=== PATIENT | female | born 1950 | race Caucasian/White ===

== ENCOUNTER 2018-06-26 15:06 | Inpatient (IN) | payer OTHER, BC ==
--- NOTE | 2018-06-26 15:22 | PDOC ---
Rapid Medical Evaluation Chief Complaint: Palpitations Time Seen by Provider: 06/26/18 15:20 Medical Evaluation: Allergies Allergy/AdvReac Type Severity Reaction Status Date / Time iodine Allergy Verified 02/22/14 11:37 oxycodone [Oxycodone] Allergy Verified 02/22/14 11:37 06/26/18 15:20 I have performed a brief in-person evaluation of this patient. The patient presents with a chief complaint of: rapid heart x 1 hours after going to the gym. Also reports feeling dizzy with chest discomfort Pertinent physical exam findings: appears anxious and unsteady gait heart rate tachy unlabored breathing flushed skin I have ordered the following: ekg, iv, labs The patient will proceed to the ED for further evaluation.
[2018-06-26 15:23] VITALS: BMI 26.3
[2018-06-26] MEDS ORDERED: dilTIAZem HCL 125 MG/25 ML - 25 ML VIAL ONE (15:37)
[2018-06-26 15:43] LABS: BASO % 0.8 % (0-2.0); EOS % 1.4 % (0-4.5); HEMATOCRIT 41.4 % (32.4-45.2); HEMOGLOBIN 14.4 GM/dL (10.7-15.3); LYMPH % 28.2 % (8-40); MCH 34.4 pg (25.7-33.7); MCHC 34.9 g/dl (32.0-36.0); MEAN CELL VOLUME 98.6 fl (80-96); MEAN PLT VOLUME 7.5 fl (7.5-11.1); MONO % 8.8 % (3.8-10.2); NEUT % 60.8 % (42.8-82.8); PLATELET COUNT 327 K/MM3 (134-434); RBC 4.19 M/mm3 (3.60-5.2); RDW 13.2 % (11.6-15.6); WHITE BLOOD COUNT 8.5 K/mm3 (4.0-10.0)
[2018-06-26] MEDS ORDERED: ASPIRIN 81 MG CHEWABLE TABLETS ONE (15:48)
[2018-06-26] MEDS ORDERED: ASPIRIN 81 MG CHEWABLE TABLETS PO ONE ×2 (15:48→15:49)
--- NOTE | 2018-06-26 15:49 | PDOC ---
History of Present Illness - General Chief Complaint: Palpitations Stated Complaint: PALPATIONS Time Seen by Provider: 06/26/18 15:20 - History of Present Illness Initial Comments: Minerva Cormier is a 67yo woman with a PMH of Prinzmetal's angina, HTN, HLD who presents with acute onset of palpitations starting just after 2pm today. She has no history of arrhythmia. During the episode, she states that she can feel her heart racing and has some chest pressure but denies any chest pain, shortness of breath, sweating, nausea, or vomiting. She did not a little lightheadedness right after standing from sitting, but no lightheadedness otherwise. She reports that she went to work out at the gym this morning with no difficulty and had been feeling well prior to the start of the palpitations. She denies any recent fevers/chills, cough or colds, nausea/vomiting, urinary symptoms or any other problems recently. She states that she takes amlodipine 2.5mg daily, and she took an extra dose after the start of the palpitations without any improvement. She sees Dr Molina as an outpatient. Past History - Past Medical History Allergies/Adverse Reactions: Allergies Allergy/AdvReac Type Severity Reaction Status Date / Time iodine Allergy Verified 02/22/14 11:37 oxycodone [Oxycodone] Allergy Verified 02/22/14 11:37 Home Medications: Ambulatory Orders Acetaminophen W/ Codeine #3 [Tylenol # 3 -] 1 tab PO Q6H PRN #12 tablet HTN: Yes Hypercholesterolemia: Yes - Suicide/Smoking/Psychosocial Hx Smoking History: Never smoked Have you smoked in the past 12 months: No Information on smoking cessation initiated: No Hx Alcohol Use: No Drug/Substance Use Hx: No Substance Use Type: Alcohol Review of Systems - Review of Systems Comments:: General: No fevers, no chills, no weight or appetite change, no malaise HEENT: No changes in vision, no changes in hearing, no congestion, no sore throat CV: No chest pain, no LE edema. See HPI Pulm: No SOB, no cough, no wheezing GI: No nausea or vomiting, no change in bowel habits, no melena : No frequency, no urgency, no dysuria Musc: No back pain, no joint swelling, no recent injury Skin: No rash, no lesions, no erythema Endo: No excessive thirst, no heat/cold intolerance Heme: No unusual bruising or bleeding, no swollen glands Neuro: No syncope, no numbness/tingling, no focal weakness Vasc: No claudication Psych: No recent change in mood, no SI or HI *Physical Exam - Vital Signs Last Vital Signs Temp Pulse Resp BP Pulse Ox 98 F 145 H 20 131/79 98 06/26/18 15:19 06/26/18 15:19 06/26/18 15:19 06/26/18 15:19 06/26/18 15:19 - Physical Exam Comments: General: Comfortable, no acute distress HEENT: PERRL, EOMI, MMM, voice normal, normal neck ROM, no LAD Cards: Tachycardic, irregularly irregular Pulm: Comfortable on room air, clear to auscultation bilaterally Abd: Soft, nontender, nondistended Ext: Atraumatic. No LE edema. ROM intact. Strength 5/5 and equal bilaterally Vasc: Extremities WWP. Palpable radial pulses bilaterally Skin: Normal color, no rashes or lesions Neuro: A&Ox3, CN grossly intact, normal speech, motor/sensory grossly intact and symmetric Psych: Mood appropriate to situation Moderate Sedation - Procedure Monitoring Vital Signs: Procedure Monitoring Vital Signs Temperature 98 F 06/26/18 15:19 Pulse Rate 145 H 06/26/18 15:19 Respiratory Rate 20 06/26/18 15:19 Blood Pressure 131/79 06/26/18 15:19 O2 Sat by Pulse Oximetry (%) 98 06/26/18 15:19 ED Treatment Course - LABORATORY CBC & Chemistry Diagram: 06/26/18 15:30 06/26/18 15:30 - ADDITIONAL ORDERS Additional order review: Laboratory Results 06/26/18 15:30 Sodium 142 Potassium 3.7 Chloride 108 H Carbon Dioxide 24 Anion Gap 10 BUN 20 H Creatinine 0.6 Creat Clearance w eGFR > 60 Random Glucose 113 H Calcium 9.3 Total Bilirubin 0.5 AST 17 ALT 18 Alkaline Phosphatase 88 Creatine Kinase 125 Troponin I < 0.02 Total Protein 7.4 Albumin 4.0 06/26/18 15:30 RBC 4.19 MCV 98.6 H MCHC 34.9 RDW 13.2 MPV 7.5 Neutrophils % 60.8 D Lymphocytes % 28.2 D Monocytes % 8.8 Eosinophils % 1.4 D Basophils % 0.8 - RADIOLOGY Radiology Studies Ordered: Category Date Time Status CHEST PA & LAT [RAD] Stat Radiology 06/26/18 15:48 Ordered CHEST X-RAY PORTABLE* [RAD] Stat Radiology 06/26/18 15:47 Completed - Medications Given in the ED: ED Medications Discontinued Medications Generic Name Dose Route Start Last Admin Trade Name Freq PRN Reason Stop Dose Admin Aspirin 162 mg 06/26/18 15:48 06/26/18 17:42 Asa - PO 06/26/18 15:49 Not Given ONCE ONE Aspirin 324 mg 06/26/18 15:49 06/26/18 15:50 Asa - PO 06/26/18 15:50 324 mg ONCE ONE Administration Diltiazem HCl 30 mg 06/26/18 16:12 06/26/18 17:41 Cardizem - PO 06/26/18 16:13 30 mg ONCE ONE Administration Medical Decision Making - Medical Decision Making 06/26/18 16:34 Minerva Cormier is a 67yo woman with a PMH of Prinzmetal's angina, HTN, HLD who presents with acute onset of palpitations starting just after 2pm today with some chest pressure but no chest pain, SOB, lightheadedness. - In a-fib w/ RVR with HR to 170's on arrival to the ED. No history of arrhythmia - Otherwise benign physical exam. No AMS. Normotensive - 10mg diltiazem IV given. Repeat EKG with NSR, HR 95. - CBC, CMP, mag, phos, coags, trop, CXR pending - Will need admission for cardiology workup 06/26/18 16:49 - Labs completed, unremarkable - Page to Dr Arredondo for admission - Call placed to Dr Molina for cardiology consult 06/26/18 17:56 - Second calls placed to Dr Arredondo and Dr Molina. - Spoke to Dr Glover (covering for Dr Molina). Recommending telemetry , lovenox 1mg/kg BID, diltiazem 30mg Q6hr 06/26/18 18:12 - Spoke with Dr Arredondo, will admit to telemetry. Seen and discussed with Dr Fernandez. Nancy Al PGY1 *DC/Admit/Observation/Transfer Diagnosis at time of Disposition: Atrial fibrillation with rapid ventricular response - Discharge Dispostion Decision to Admit order: Yes Decision to Admit order Date/Time: Decision to Admit Order Category Date Time Status Decision to Admit to Hospital Routine Admission 06/26/18 16:59 Active - Referrals - Patient Instructions - Post Discharge Activity
--- NOTE | 2018-06-26 16:08 | PDOC ---
Attending Attestation - Resident Resident Name: Nancy Al - ED Attending Attestation I have performed the following: I have examined & evaluated the patient, The case was reviewed & discussed with the resident, I agree w/resident's findings & plan - HPI HPI: 06/26/18 16:02 67-year-old female with history of Prinzmetal's angina p/w new onset heart palpitations that began abruptly about 1h ago. associated with chest pressure but no light headedness/syncope. no h/o arrhythmia, had reportedly normal stress test about 1.5 years ago and tolerates gym exercises at least 2x/wk, including this morning. no infectious/dehydration complaints, no stimulants/decongestants, no extra caffeine, no recent travel other than [place] for the weekend. - Physicial Exam PE: 06/26/18 16:07 Blood pressure 139/80, heart rate 170 at triage, O2 sat within normal limits Well-appearing seated in stretcher speaking full sentences Heart is irregular tachycardia, lungs are clear No edema or calf tenderness - Critical Care Time Total Critical Care Time: 70 Critical Care Statement: The care of this patient involved high complexity decision making to prevent further life threatening deterioration of the patient 's condition and/or to evaluate & treat vital organ system(s) failure or risk of failure. - Medical Decision Making 06/26/18 16:07 67-year-old female with history of Prinzmetal's angina and normal stress test in the past presents with new onset atrial fibrillation with rapid ventricular response. Seen immediately upon arrival and placed on monitor No acute respiratory distress, no acute ischemic changes on EKG Given diltiazem 10 mg IV with improved heart rate to the 90s, repeat EKG is SINUS rhythm at 95. Trend troponins given symptomatic chest pain during tachycardia, admit for telemetry. Heart Score/ECG Review #1 ECG reviewed & interpreted by me at: 15:13 06/26/18 16:36 afib with rvr at 154, ST depression v4-v6 likely demand related, qtc 470 #2 ECG reviewed & interpreted by me at: 16:19 General ECG Interpretation: Sinus Rhythm, Normal Rate (95), Normal Intervals ( qtc 444), No acute ischemic changes
[2018-06-26] MEDS ORDERED: dilTIAZem HCL 30 MG TABLET (FP) PO ONE (16:12)
[2018-06-26 16:37] LABS: ALK PHOS 88 U/L (45-117); ANION GAP 10 MMOL/L (8-16); BILIRUBIN,TOTAL 0.5 mg/dL (0.2-1); BLOOD UREA NITROGEN 20 mg/dL (7-18); CALCIUM 9.3 mg/dL (8.5-10.1); CHLORIDE 108 mmol/L (98-107); CO2 24 mmol/L (21-32); CREATININE 0.6 mg/dL (0.55-1.3); GLUCOSE,RANDOM 113 mg/dL (74-106); POTASSIUM 3.7 mmol/L (3.5-5.1); SGOT/AST 17 U/L (15-37); SGPT/ALT 18 U/L (13-61); SODIUM 142 mmol/L (136-145); TOT PROT 7.4 g/dl (6.4-8.2)
--- NOTE | 2018-06-26 17:28 | EKG ---
Test Reason : Blood Pressure : / mmHG Vent. Rate : 154 BPM Atrial Rate : 312 BPM P-R Int : 000 ms QRS Dur : 092 ms QT Int : 294 ms P-R-T Axes : 000 040 -21 degrees QTc Int : 470 ms ATRIAL FIBRILLATION WITH RAPID VENTRICULAR RESPONSE INCOMPLETE RIGHT BUNDLE BRANCH BLOCK ABNORMAL ECG WHEN COMPARED WITH ECG OF 28-AUG-2005 08:26, ATRIAL FIBRILLATION HAS REPLACED SINUS RHYTHM VENT. RATE HAS INCREASED BY 82 BPM Confirmed by NEETU HUNTER, MISTY ([id number]) on 06/26/2018 5:28:25 PM Referred By: Confirmed By:MISTY DE ANDA MD
[2018-06-26] MEDS ORDERED: dilTIAZem HCL 30 MG TABLET (FP) ONE (17:35)
[2018-06-26] MEDS: dilTIAZem HCL 30 MG TABLET (FP) PO SCH ×2 (17:41→23:41)
[2018-06-26] MEDS ORDERED: ENOXAPARIN NA (PORCINE) 40 MG/0.4 ML DISP.SYRIN SQ SCH (22:00)
[2018-06-26 23:14] LABS: INR 1.03 (0.83-1.09); PROTHROMBIN TIME (PATIENT) 12.1 SEC (9.7-13.0)
[2018-06-26 23:16] LABS: ACTIVATED PTT 30.2 SECONDS (25.2-36.5)
[2018-06-27] MEDS: dilTIAZem HCL 30 MG TABLET (FP) PO SCH (05:57)
[2018-06-27] MEDS ORDERED: ACETAMINOPHEN 325 MG TABLET (FP) PO ONE (06:00)
[2018-06-27 06:39] LABS: BASO % 0.7 % (0-2.0); EOS % 4.4 % (0-4.5); HEMATOCRIT 34.8 % (32.4-45.2); HEMOGLOBIN 12.2 GM/dL (10.7-15.3); MCH 34.3 pg (25.7-33.7); MEAN CELL VOLUME 98.1 fl (80-96); MEAN PLT VOLUME 7.5 fl (7.5-11.1); MONO % 11.2 % (3.8-10.2); NEUT % 45.7 % (42.8-82.8); PLATELET COUNT 222 K/MM3 (134-434); RBC 3.55 M/mm3 (3.60-5.2); RDW 13.3 % (11.6-15.6); WHITE BLOOD COUNT 3.6 K/mm3 (4.0-10.0)
[2018-06-27 07:32] LABS: ALBUMIN 3.3 g/dl (3.4-5.0); ALK PHOS 62 U/L (45-117); ANION GAP 8 MMOL/L (8-16); BILIRUBIN,TOTAL 0.3 mg/dL (0.2-1); BLOOD UREA NITROGEN 13 mg/dL (7-18); CALCIUM 8.4 mg/dL (8.5-10.1); CHLORIDE 108 mmol/L (98-107); CO2 26 mmol/L (21-32); CREATININE 0.5 mg/dL (0.55-1.3); GLUCOSE,RANDOM 87 mg/dL (74-106); POTASSIUM 3.7 mmol/L (3.5-5.1); SGOT/AST 14 U/L (15-37); SGPT/ALT 15 U/L (13-61); SODIUM 142 mmol/L (136-145); TOT PROT 6.1 g/dl (6.4-8.2)
--- NOTE | 2018-06-27 09:22 | CON.CARD ---
Consult Consult Specialty:: Cardiology Referred by:: Dr. Arredondo Reason for Consultation:: FADY - History of Present Illness Chief Complaint: Palpitations History of Present Illness: 67F HTN, Prinzmetal's angina, s/p Bariatric Surgery admitted with episode sudden onset palpitations associated with chest tightness. In ER, converted to NSR after dose of Diltiazem. Denies previous palpitations. Denies exertional CP or SOB. No syncope. No recent travel No recent illness/dehydration Denies excessive caffeine intake No suppliments - History Source History Provided By: Patient - Past Medical History Cardio/Vascular: Yes: HTN, Other (Prinzmetal's angina) Hepatobiliary: No: Cirrhosis, Cholelithiasis, Cholecystitis, Choledocholithiasis , Hepatitis A, Hepatitis B, Hepatitis C, Other Renal/: No: Renal Failure, Renal Inusuff, BPH, Cancer, Hematuria, Hemodialysis , Neurogenic Bladder, Renal Calculi, UTI, Other Heme/Onc: No: Anemia, B12 Deficiency, Bleeding Disorder, Cancer, Current Chemotherapy, Current Radiation Therapy, Hemochromatosis, Hypercoaguable State, Myeloproliferative Synd, Sickle Cell Disease, Sickle Cell Trait, Thrombocytopenia, Other Infectious Disease: No: AIDS, C-Diff, Herpes Zoster, HIV, MRSA, STD's, Tuberculosis, VREF, Other Psych: No: Addictions, Anxiety, Bipolar, Depression, Panic, Psychosis, Schizophrenia, Other Musculoskeletal: No: Bursitis, Chronic low back pain, Hemiparesis, Hemiplegia, Osteoarthritis, Paraplegia, Other Rheumatology: No: Fibromyalgia, Gout, Lupus, Rheumatoid Arthritis, Sarcoidosis, Vasculitis, Other ENT: No: Allergic Rhinitis, Sinusitis, Other Endocrine: No: [place]'s Disease, [place]'s Disease, Diabetes Insipidus, Diabetes Mellitus, Hyperparathyroidism, Hyperthyroidism, Hypothyroidism, Osteopenia, SIADH, Other Dermatology: No: Basal Cell, Cellulitis, Eczema, Melanoma, Psoriasis, Squamous Cell, Other - Past Surgical History Past Surgical History: No: None, AAA Repair, AICD, Amputation, Appendectomy, Arthrosocopy, AV Fistula/Graft, Bariatric Surgery, Breast Biopsy, Bypass, CABG, Carotid Endarterectomy, Cataract Removal, Cholecystectomy, Colectomy, Colonoscopy, Colostomy, Craniotomy, , Cystectomy, Hernia Repair, Hysterectomy, Ileal Conduit, Ileosotomy, Joint Replacement, Kidney Transplant, Laminectomy, Liver Transplant, Mastectomy, Nephrectomy, Oopherectomy, Orchiectomy, Permanent Pacemaker, Prostatectomy, Splenectomy, Stent, Thoracotomy , TURP, Tonsillectomy, Tubal Ligation, Upper Endoscopy, Valve Replacement, Vasectomy, Vein Stripping/Ligation - Alcohol/Substance Use Hx Alcohol Use: No - Smoking History Smoking history: Never smoked Have you smoked in the past 12 months: No - Social History Usual Living Arrangement: Alone History of Recent Travel: No Home Medications - Allergies Allergies/Adverse Reactions: Allergies Allergy/AdvReac Type Severity Reaction Status Date / Time iodine Allergy Verified 02/22/14 11:37 oxycodone [Oxycodone] Allergy Verified 02/22/14 11:37 - Home Medications Home Medications: Ambulatory Orders Acetaminophen W/ Codeine #3 [Tylenol # 3 -] 1 tab PO Q6H PRN #12 tablet Family Disease History - Family Disease History Family History: Unremarkable (not pertinent to this presentation) Review of Systems Findings/Remarks: see HPI - Review of Systems Constitutional: reports: No Symptoms Eyes: reports: No Symptoms HENT: reports: No Symptoms Neck: reports: No Symptoms Cardiovascular: reports: Chest Pain, Palpitations Respiratory: denies: No Symptoms, Cough, Exercise Intolerance, Hemoptysis, Orthopnea, PND, Snoring, SOB, SOB on Exertion, Wheezing, Other Gastrointestinal: denies: No Symptoms, Abdominal Pain, Bloating, Constipation, Diarrhea, Dysphagia, Indigestion, Melena, Nausea, Rectal Bleeding, Vomiting, Vomiting Blood, Other Genitourinary: denies: No Symptoms, Burning, Discharge, Dysuria, Flank Pain, Frequency, Hematuria, Incontinence, Lesions, Menses, Pain, Testicular Mass, Testicular Pain, Testicular Swelling, Urgency, Vaginal Bleeding, Other Breasts: denies: No Symptoms Reported, See HPI, Breast Implants, Discharge from Nipple, Lumps, Pain, Skin Changes, Other Musculoskeletal: denies: No Symptoms, Back Pain, Crepitus, Decreased ROM, Extremity Pain, Joint Pain, Joint Swelling, Muscle Pain, Muscle Cramps, Muscle Weakness, Other Integumentary: denies: No Symptoms, Blister, Bruising, Change in Color, Eczema, Erythema, Incision, Lesions, Lump, Pallor, Pruritis, Rash, Wound, Other Neurological: denies: No Symptoms, Change in LOC, Change in Speech, Confusion, Dizziness, Headache, Incoordination, Numbness, Parasthesia, Pre-Existing Deficit , Seizure, Syncope, Tremors, Unsteady Gait, Weakness, Other Endocrine: denies: No Symptoms, Excessive Sweating, Flushing, Increased Hunger, Increased Thirst, Intolerance to Cold, Intolerance to Heat, Unexplained Weight Gain, Unexplained Weight Loss, Other Hematology/Lymphatic: denies: No Symptoms, Easily Bruised, Excessive Bleeding, Swollen Glands, Other Psychiatric: denies: No Symptoms, Altered Sleep Pattern, Anxiety, Depression, Hallucinations, Panic, Paranoia, Suicidal, Other - Risk Factors Known Risk Factors: Yes: Hypertension Vital Signs: Vital Signs Temperature 97.9 F 06/27/18 05:49 Pulse Rate 74 06/27/18 05:49 Respiratory Rate 20 06/27/18 05:49 Blood Pressure 128/79 06/27/18 05:49 O2 Sat by Pulse Oximetry (%) 100 06/26/18 21:00 Constitutional: Yes: No Distress, Calm Eyes: Yes: Conjunctiva Clear, EOM Intact HENT: Yes: Atraumatic, Normocephalic Neck: Yes: Supple, Trachea Midline Respiratory: Yes: CTA Bilaterally Gastrointestinal: Yes: Soft Cardiovascular: Yes: Regular Rate and Rhythm JVD: No Carotid Bruit: No PMI: Non-Displaced Heart Sounds: Yes: S1, S2 (RRR, no M/R/G) Musculoskeletal: Yes: WNL Extremities: Yes: WNL Edema: No Peripheral Pulses WNL: Yes Neurological: Yes: Alert, Oriented ...Motor Strength: WNL - Other Data Labs, Other Data: CBC, BMP 06/27/18 05:30 06/27/18 05:30 INR, PTT INR 1.03 (0.83-1.09) 06/26/18 17:08 Troponin, BNP 06/26/18 06/26/18 06/27/18 15:30 23:45 05:30 Troponin I < 0.02 0.03 0.02 Troponin, BNP 06/26/18 06/26/18 06/27/18 15:30 23:45 05:30 Troponin I < 0.02 0.03 0.02 Echo: Pending Ejection Fraction %: LVEF > or = 40 % Imaging - Results Chest X-ray: Image Reviewed EKG: Image Reviewed (AF 154 bpm, incomplete RBBB. NSST changes. 12 lead: NSR 95bpm, possible LAE) Problem List - Problems (1) Atrial fibrillation with rapid ventricular response Code(s): I48.91 - UNSPECIFIED ATRIAL FIBRILLATION (2) Hypertensive heart disease Code(s): I11.9 - HYPERTENSIVE HEART DISEASE WITHOUT HEART FAILURE Qualifiers: Heart failure presence: without heart failure Qualified Code(s): I11.9 - Hypertensive heart disease without heart failure (3) Prinzmetal variant angina Code(s): I20.1 - ANGINA PECTORIS WITH DOCUMENTED SPASM (4) Abnormal ECG Code(s): R94.31 - ABNORMAL ELECTROCARDIOGRAM [ECG] [EKG] Assessment/Plan IMP: New onset AF w/ RVR---> NSR with CHA2DS VASc score = 3 Hypertension, hypertensive heart disease Left atrial enlargement REC: 1. Tele 2. Echo 3. Nuclear stress to r/o obstructive CAD 4. D/C Lovenox and switch to Eliquis and extended release Cardizem CD 5. Thyroid studies WNL If remains in NSR/ rate controlled and stress WNL, OK to d/c home later today with close outpatient f/u.
[2018-06-27] MEDS ORDERED: ENOXAPARIN NA (PORCINE) 80 MG/0.8 ML DISP.SYRIN SQ SCH (10:00)
[2018-06-27] MEDS ORDERED: ASPIRIN COATED 81 MG TABLET.EC PO SCH (10:00)
[2018-06-27] MEDS ORDERED: APIXABAN 5 MG TABLET PO SCH (10:00)
--- NOTE | 2018-06-27 14:08 | ECHO ---
Name: RACCA, HOPE Exam:Adult Echocardiogram Study Date: 06/27/2018 09:41 AM Age: 67 yrs Reason For Study: A-Fib Height: 66 in Weight: 163 lb BSA: 1.8 m2 MMode/2D Measurements & Calculations Ao root diam: 2.6 cm LVOT diam: 2.0 cm LA dimension: 4.1 cm TAPSE: 3.0 cm RV S Andrei: 18.0 cm/sec Doppler Measurements & Calculations MV E max andrei: 83.4 cm/sec Ao V2 max: 185.8 cm/sec MV A max andrei: 96.0 cm/sec Ao max P.8 mmHg MV E/A: 0.87 TR max andrei: 230.9 cm/sec Med Peak E' Andrei: 7.8 cm/sec TR max P.4 mmHg Med E/e': 10.6 Lat Peak E' Andrei: 9.2 cm/sec Lat E/e': 9.0 Procedure A complete two-dimensional transthoracic echocardiogram was performed (2D, M-mode, Doppler and color flow Doppler). Left Ventricle The left ventricular size, thickness and function are normal. Ejection Fraction = 65%. The transmitra l spectral Doppler flow pattern is suggestive of impaired LV relaxation. The left ventricular wall td on is normal. Right Ventricle The right ventricle is normal in size and function. Atria The left atrium is borderline dilated. Right atrial size is normal. Mitral Valve There is mild mitral valve thickening. There is trace mitral regurgitation. Tricuspid Valve The tricuspid valve is normal. There is trace tricuspid regurgitation. Aortic Valve The aortic valve is normal in structure and function. Pulmonic Valve The pulmonic valve leaflets are thin and pliable; valve motion is normal. Trace pulmonic valvular regurgitation. Great Vessels The aortic root is normal size. Pericardium/Pleura There is no pericardial effusion. There is no pleural effusion. Interpretation Summary The left ventricular size, thickness and function are normal Ejection Fraction = 65%. The right ventricle is normal in size and function. The left atrium is borderline dilated. There is mild mitral valve thickening. There is trace mitral regurgitation. There is trace tricuspid regurgitation. Trace pulmonic valvular regurgitation. MD Yves Barajas 06/27/2018 02:07 PM
--- NOTE | 2018-06-27 15:07 | EKG ---
Test Reason : Blood Pressure : / mmHG Vent. Rate : 095 BPM Atrial Rate : 095 BPM P-R Int : 168 ms QRS Dur : 094 ms QT Int : 354 ms P-R-T Axes : 048 017 018 degrees QTc Int : 444 ms NORMAL SINUS RHYTHM POSSIBLE LEFT ATRIAL ENLARGEMENT BORDERLINE ECG Confirmed by Yves Barajas MD ([id number]) on 06/27/2018 3:07:10 PM Referred By: Confirmed By:Yves Barajas MD
--- NOTE | 2018-06-27 16:26 | HP ---
Admitting History and Physical - Past Medical History Cardiovascular: Yes: HTN, Other (Prinzmetal's angina) Hepatobiliary: No: Cirrhosis, Cholelithiasis, Cholecystitis, Choledocholithiasis , Hepatitis A, Hepatitis B, Hepatitis C, Other Renal/: No: Renal Failure, Renal Inusuff, BPH, Cancer, Hematuria, Hemodialysis , Neurogenic Bladder, Renal Calculi, UTI, Other Heme/Onc: No: Anemia, B12 Deficiency, Bleeding Disorder, Cancer, Current Chemotherapy, Current Radiation Therapy, Hemochromatosis, Hypercoaguable State, Myeloproliferative Synd, Sickle Cell Disease, Sickle Cell Trait, Thrombocytopenia, Other Infectious Disease: No: AIDS, C-Diff, Herpes Zoster, HIV, MRSA, STD's, Tuberculosis, VREF, Other Psych: No: Addictions, Anxiety, Bipolar, Depression, Panic, Psychosis, Schizophrenia, Other Musculoskeletal: No: Bursitis, Chronic low back pain, Hemiparesis, Hemiplegia, Osteoarthritis, Paraplegia, Other Rheumatology: No: Fibromyalgia, Gout, Lupus, Rheumatoid Arthritis, Sarcoidosis, Vasculitis, Other ENT: No: Allergic Rhinitis, Sinusitis, Other Endocrine: No: [place]'s Disease, [place]'s Disease, Diabetes Insipidus, Diabetes Mellitus, Hyperparathyroidism, Hyperthyroidism, Hypothyroidism, Osteopenia, SIADH, Other Dermatology: No: Basal Cell, Cellulitis, Eczema, Melanoma, Psoriasis, Squamous Cell, Other - Past Surgical History Past Surgical History: No: None, AAA Repair, AICD, Amputation, Appendectomy, Arthrosocopy, AV Fistula/Graft, Bariatric Surgery, Breast Biopsy, Bypass, CABG, Carotid Endarterectomy, Cataract Removal, Cholecystectomy, Colectomy, Colonoscopy, Colostomy, Craniotomy, , Cystectomy, Hernia Repair, Hysterectomy, Ileal Conduit, Ileosotomy, Joint Replacement, Kidney Transplant, Laminectomy, Liver Transplant, Mastectomy, Nephrectomy, Oopherectomy, Orchiectomy, Permanent Pacemaker, Prostatectomy, Splenectomy, Stent, Thoracotomy , TURP, Tonsillectomy, Tubal Ligation, Upper Endoscopy, Valve Replacement, Vasectomy, Vein Stripping/Ligation - Smoking History Smoking history: Never smoked Have you smoked in the past 12 months: No - Alcohol/Substance Use Hx Alcohol Use: No - Social History History of Recent Travel: No Home Medications - Allergies Allergies/Adverse Reactions: Allergies Allergy/AdvReac Type Severity Reaction Status Date / Time iodine Allergy Verified 02/22/14 11:37 oxycodone [Oxycodone] Allergy Verified 02/22/14 11:37 - Home Medications Home Medications: Ambulatory Orders Acetaminophen W/ Codeine #3 [Tylenol # 3 -] 1 tab PO Q6H PRN #12 tablet Amlodipine Besylate [Norvasc -] 2.5 mg PO DAILY 06/27/18 Omeprazole 40 mg PO DAILY 06/27/18 Sertraline HCl 50 mg PO BID 06/27/18 Physical Examination Vital Signs: Vital Signs Temperature 97.9 F 06/27/18 05:49 Pulse Rate 74 06/27/18 05:49 Respiratory Rate 16 06/27/18 09:00 Blood Pressure 128/79 06/27/18 05:49 O2 Sat by Pulse Oximetry (%) 100 06/27/18 09:00 Labs: CBC, BMP 06/27/18 05:30 06/27/18 05:30
[2018-06-27 19:42] VITALS: BP 154/92; PULSE 82; TEMP 98
== END 2018-06-27 17:32 | disposition home or self-care (01) | DRG 309 ==
LOC: JER 15:06 → SUPCPDRO 15:06 → JERBED 16:59 → J4W 20:46
PROVIDERS: ADMIT Internal Medicine; ATTEND Internal Medicine
DX: I48.91 Unspecified atrial fibrillation (principal); I20.0 Unstable angina; I11.9 Hypertensive heart disease without heart failure; E78.5 Hyperlipidemia, unspecified
CPT/HCPCS: 36415; 71045-TC-FY; 78452-TC; 80053; 82550; 83735; 84443; 84484; 85025; 85610; 85730; 93005; 93010; 93017; 93306-TC; 99285-25; A9502

== ENCOUNTER 2019-06-26 08:06 | Day surgery (SDC) | payer OTHER, BC ==
[2019-06-18 17:02] VITALS: BMI 28.3
--- NOTE | 2019-06-26 08:04 | HP ---
Satellite [facility] - Chief Complaint Chief Complaint: right knee pain - Past Medical History Allergies/Adverse Reactions: Allergies Allergy/AdvReac Type Severity Reaction Status Date / Time oxycodone [Oxycodone] Allergy Intermediate Vomiting Verified 06/18/19 16:44 iodine Allergy Mild ACNE Verified 06/18/19 16:44 Cardiovascular: Yes: HTN, Hyperlipdemia, Other (Prinzmetal's angina) - Current Medications Current Medications: Home Medications Medication Instructions Recorded Apixaban [Eliquis -] 5 mg PO BID #60 tablet 06/27/18 Omeprazole 40 mg PO DAILY 06/27/18 Sertraline HCl 100 mg PO BID 06/27/18 Amlodipine Besylate 5 mg PO DAILY 06/18/19 Calcium Carbonate [Calcium] 500 mg PO DAILY 06/18/19 Metoprolol Tartrate 25 mg PO DAILY 06/18/19 Multivitamin [Multiple Vitamins] 2 each PO DAILY 06/18/19 Satellite Physical Exam - Physical Examination General Appearance: Well Nourished, Well Developed, Alert & Oriented x3 ENT: Clear Lung: Normal air movement Extremities: Other (right knee- + swelling, + ttp, decr rom, nvi, xrays show grade 4 tricompartmental djd) Neurological: Intact, Alert, Oriented Satellite Impression/Plan - Impression/Plan Impression: right knee djd Operative Procedure: right flynn tkr Date to be Performed: 06/26/19
[2019-06-26] MEDS ORDERED: CEFAZOLIN 2 GM in DEXTROSE 5%-WATER - 50 ML IVPB ONE ×2 (08:24→08:52)
[2019-06-26] MEDS ORDERED: TRANEXAMIC ACID 1000 MG/10 ML VIAL IVPUSH ONE ×2 (08:24)
[2019-06-26] MEDS ORDERED: CELECOXIB 200 MG CAPSULE PO ONE ×2 (08:24)
[2019-06-26] MEDS ORDERED: CELECOXIB 200 MG CAPSULE ONE (08:27)
[2019-06-26 09:19] VITALS: BP 129/87; PULSE 140; TEMP 98.2
--- NOTE | 2019-06-26 10:57 | EKG ---
Test Reason : Blood Pressure : / mmHG Vent. Rate : 137 BPM Atrial Rate : 137 BPM P-R Int : 104 ms QRS Dur : 086 ms QT Int : 370 ms P-R-T Axes : 000 029 056 degrees QTc Int : 558 ms POOR DATA QUALITY, INTERPRETATION MAY BE ADVERSELY AFFECTED SINUS TACHYCARDIA WITH SHORT FL INFERIOR INFARCT , POSSIBLY ACUTE T WAVE ABNORMALITY, CONSIDER ANTERIOR ISCHEMIA ACUTE VT / STEMI ABNORMAL ECG WHEN COMPARED WITH ECG OF 26-JUN-2018 16:19, ST ELEVATION NOW PRESENT IN INFERIOR LEADS Confirmed by Yves Barajas MD ([id number]) on 06/26/2019 10:56:46 AM Referred By: Joselo Aguero Confirmed By:Yves Barajas MD
--- NOTE | 2019-06-26 16:57 | CONS ---
ORTHOPAEDIC CONSULTATION [facility] DATE OF CONSULTATION: 06/26/2019 HISTORY: Patient is a 68-year-old insulin-dependent diabetic status post a fall yesterday. Negative LOC. Complaining of significant pain in the right arm. Patient is status post right shoulder hemiarthroplasty over 12 years ago. She is complaining of significant amount of pain in the right arm. PHYSICAL EXAMINATION: She is in a posterior splint. She has good range of motion of her wrist and fingers and intact ulnar, medial, radial sensation. Adequate motion of her right shoulder with a well-healed anterior shoulder incision from her hemiarthroplasty. DIAGNOSTIC DATA: X-rays of her right humerus show that she has an oblique distal humeral shaft fracture below the right cemented hemiarthroplasty. IMPRESSION: Right distal humerus oblique displaced fracture below a right shoulder hemiarthroplasty that is cemented. PLAN: Risks, benefits, alternatives were discussed with patient and with son in great detail. Family is leaning towards having operative intervention even though I went through all the risks, benefits, and alternatives. Patient realizes there is an extra risk due to her age and her diabetes. In addition, with this fracture being below a hemiarthroplasty, it leads to a whole host of difficulties use cables and specialized plates in order to gain fixation. Also patient and family realize that the radial nerve wraps around the humerus above this fracture would need to be retracted in order to perform this procedure. Patient may end up with a wrist drop at the end of the operation. I went through all this. The patient and family will discuss it. Patient is on Xarelto and at this time will need to come off the Xarelto in order to have the procedure. We have stopped Xarelto. Patient will, again, discuss it with the family and let me know tomorrow definitively one way or the other. ARIANNA JOHANSEN M.D. [id number]
== END 2019-06-26 10:45 | disposition short-term general hospital (02) ==
LOC: FM/S 08:06 → FASUSAT 08:06 → UNDOADMIN 08:06 → EDSTATUS 09:00 → FASUSAT 10:45
PROVIDERS: ATTEND Orthopaedic Surgery
PROC: 0SRC06Z Replacement of Right Knee Joint with Oxidized Zirconium on Polyethylene Synthetic Substitute, Open Approach (ICD-10-PCS; principal; 2019-06-26)
DX: Z53.09 Procedure and treatment not carried out because of other contraindication (principal); M17.11 Unilateral primary osteoarthritis, right knee
CPT/HCPCS: 93005

== ENCOUNTER 2019-06-26 10:07 | Emergency (ER) | payer OTHER, BC ==
[2019-06-26 10:16] VITALS: TEMP 98.5; BMI 28.8
--- NOTE | 2019-06-26 10:39 | PDOC ---
History of Present Illness - General Chief Complaint: Irregular Heart Beat Stated Complaint: FAST IRREGULAR HEART BEAT Time Seen by Provider: 06/26/19 10:15 - History of Present Illness Initial Comments: Minerva Cormier is a 68yo woman with a PMH Prinzmetal's angina, HTN, HLD, a-fib (on Eliquis) who presents with a-flutter noted while she was in preop for a schedule knee replacement surgery today. She states that she felt a fluttering sensation yesterday and this morning, similar to whien her a-fib was diagnosed last year, but has not had any other symptoms. She denies any chest pain, difficulty breathing, or lightheadedness. She states that she stopped taking her Eliquis on Tuesday due to her scheduled surgery, but she has been taking her other medications as directed. Past History - Past Medical History Allergies/Adverse Reactions: Allergies Allergy/AdvReac Type Severity Reaction Status Date / Time oxycodone [Oxycodone] Allergy Intermediate Vomiting Verified 06/26/19 10:12 iodine Allergy Mild ACNE Verified 06/26/19 10:12 Home Medications: Ambulatory Orders Apixaban [Eliquis -] 5 mg PO BID #60 tablet 06/27/18 Omeprazole 40 mg PO BID 06/27/18 Sertraline HCl 100 mg PO BID 06/27/18 Amlodipine Besylate 5 mg PO DAILY 06/18/19 Calcium Carbonate [Calcium] 3 tab PO DAILY 06/18/19 Multivitamin [Multiple Vitamins] 2 each PO DAILY 06/18/19 Atorvastatin Ca [Lipitor] 10 mg PO HS 06/26/19 Cyanocobalamin [Vitamin B12 -] 3,000 mcg PO WEEKLY 06/26/19 Metoprolol Succinate [Toprol Xl] 25 mg PO DAILY 06/26/19 Metoprolol Succinate [Toprol Xl] 50 mg PO DAILY #14 tab.er.24h 06/26/19 Anemia: No Asthma: No Cancer: No Cardiac Disorders: Yes (, H/O AFIB) CVA: No COPD: No CHF: No Dementia: No Diabetes: No GI Disorders: No Disorders: No HTN: Yes Hypercholesterolemia: Yes Liver Disease: No Seizures: No Thyroid Disease: No - Surgical History Abdominal Surgery: Yes (GASTRIC BYPASS 5 YRS AGO) Appendectomy: No Cardiac Surgery: No Cholecystectomy: No Lung Surgery: No Neurologic Surgery: No Orthopedic Surgery: Yes (left wrist sx with plate insertion) - Psycho Social/Smoking Cessation Hx Smoking History: Never smoked Have you smoked in the past 12 months: No Hx Alcohol Use: Yes (SOCIALLY) Drug/Substance Use Hx: Yes Substance Use Type: None Hx Substance Use Treatment: No Review of Systems - Review of Systems Comments:: General: No fevers, no chills, no weight or appetite change, no malaise HEENT: No changes in vision, no changes in hearing, no congestion, no sore throat CV: No chest pain, + palpitations, no LE edema Pulm: No SOB, no cough, no wheezing GI: No nausea or vomiting, no change in bowel habits, no melena : No frequency, no urgency, no dysuria Musc: No back pain, no joint swelling, no recent injury Skin: No rash, no lesions, no erythema Endo: No excessive thirst, no heat/cold intolerance Heme: No unusual bruising or bleeding, no swollen glands Neuro: No syncope, no numbness/tingling, no focal weakness Vasc: No claudication Psych: No recent change in mood, no SI or HI *Physical Exam - Vital Signs Last Vital Signs Temp Pulse Resp BP Pulse Ox 98.5 F 139 H 17 129/102 H 96 06/26/19 10:08 06/26/19 10:08 06/26/19 10:08 06/26/19 10:08 06/26/19 10:08 - Physical Exam General: Comfortable, no acute distress HEENT: PERRL, EOMI, MMM, voice normal, normal neck ROM, no LAD Cards: Tachycardic, no murmur appreciated. No obvious irregularity Pulm: Comfortable on room air, clear to auscultation bilaterally Abd: Soft, nontender, nondistended Ext: Atraumatic. No LE edema. ROM intact. WWP Skin: Normal color, no rashes or lesions Neuro: A&Ox3, CN grossly intact, normal speech, motor/sensory grossly intact and symmetric Psych: Mood appropriate to situation ED Treatment Course - LABORATORY CBC & Chemistry Diagram: 06/26/19 10:20 06/26/19 10:20 Medical Decision Making - Medical Decision Making 06/26/19 10:33 Minerva Cormier is a 68yo woman with a PMH Prinzmetal's angina, HTN, HLD, a-fib (on Eliquis) who presents with asymptomatic a-flutter noted while she was in preop for a schedule knee replacement surgery today. - EKG completed on arrival, shows a-flutter w/ 2:1 block, HR 133 - Will evaluate for end-organ effects from tachycardia. CBC, CMP, trop, CXR - Pt takes metoprolol at home. Per chart review, converted out of a-fib last year with diltiazem. Will give IV dilt 0.25mg/kg, reassess 06/26/19 11:05 - Labs reviewed. No concerning abnormalities. Trop 0.03 - HR now around 100 after 20mg IV diltiazem. Giving 30mg PO diltiazem for continued HR control 06/26/19 12:01 - Repeat EKG ordered - Dr Molina contacted, spoke to Dr Cosme. Recommending increased metoprolol but may be discharged home given negative workup. Will f/u with patient - Plan discussed w/ patient, who understands and agrees. She will restart her anticoagulant as well. Discussed with Dr Carmelina Al PGY2 Discharge - Discharge Information Problems reviewed: Yes Clinical Impression/Diagnosis: Afib Qualifiers: Atrial fibrillation type: permanent Qualified Code(s): I48.21 - Permanent atrial fibrillation Condition: Fair Disposition: HOME - Additional Discharge Information Prescriptions: Metoprolol Succinate [Toprol Xl] 50 mg PO DAILY #14 tab.er.24h - Follow up/Referral Referrals: Alexx Molina MD [Staff Physician] - - Patient Discharge Instructions Patient Printed Discharge Instructions: DI for Arrhythmias Additional Instructions: Increase your metoprolol to 50 mg daily. Restart your Eliquist today. Call Dr. Molina today for follow-up appointment within 1 week. Return to ED for any chest pain shortness of breath severe worsening symptoms or for any concerns. - Post Discharge Activity
[2019-06-26] MEDS ORDERED: SODIUM CHLORIDE 0.9% 500 ML INFUS.BAG IV ONE (10:40)
[2019-06-26] MEDS ORDERED: dilTIAZem HCL 50 MG/10 ML - 10 ML VIAL IVPUSH ONE (10:40)
[2019-06-26 10:44] LABS: BASO % 0.5 % (0-2.0); EOS % 0.8 % (0-4.5); HEMATOCRIT 43.7 % (32.4-45.2); HEMOGLOBIN 14.4 GM/dl (10.7-15.3); LYMPH % 19.7 % (8-40); MCH 32.6 pg (25.7-33.7); MCHC 32.9 g/dl (32.0-36.0); MEAN CELL VOLUME 99.1 fl (80-96); MEAN PLT VOLUME 7.4 fl (7.5-11.1); MONO % 10.2 % (3.8-10.2); NEUT % 68.8 % (42.8-82.8); PLATELET COUNT 260 K/MM3 (134-434); RDW 12.7 % (11.6-15.6)
[2019-06-26] MEDS ORDERED: dilTIAZem HCL 50 MG/10 ML - 10 ML VIAL ONE (10:49)
[2019-06-26 10:50] LABS: ALBUMIN 4.2 g/dl (3.4-5.0); BILIRUBIN,TOTAL 0.6 mg/dl (0.2-1); CALCIUM 8.6 mg/dl (8.5-10); CREATININE 0.6 mg/dl (0.55-1.3); POTASSIUM 3.9 mmol/L (3.5-5.1); TOT PROT 6.9 g/dl (6.4-8.2)
[2019-06-26] MEDS ORDERED: dilTIAZem HCL 30 MG TABLET (FP) PO ONE (11:04)
[2019-06-26] MEDS ORDERED: dilTIAZem HCL 30 MG TABLET (FP) ONE (11:07)
--- NOTE | 2019-06-26 11:50 | PDOC ---
Attending Attestation - Resident Resident Name: Nancy Al - ED Attending Attestation I have performed the following: I have examined & evaluated the patient, The case was reviewed & discussed with the resident, I agree w/resident's findings & plan, Exceptions are as noted - HPI HPI: 06/26/19 11:48 68 years old past medical history significant for A. fib on Eliquis 25 mg per metoprolol daily presents ED with palpitations from last night today was scheduled for right knee replacement was found to be in A. fib with RVR no chest pain no shortness of breath symptoms mild to moderate persistent constant no exacerbating alleviating factors. - Physicial Exam PE: 06/26/19 17:26 Vitals: Triage Vital signs reviewed General Appearance: No acute distress, well nourished well developed, Head: Atraumatic, Cardiac: Irregularly irregular Lungs: Clear to auscultation bilateral, good air movement bilaterally, Abdomen: Soft, non distended, normal bowel sounds, non tender to palpation Extremities: Full range of motion to all extremities, no cyanosis, clubbing, or edema Skin: Warm and dry, no rashes or lesions, no rash, no petechiae Psych: Normal mood, normal affect - Critical Care Time Total Critical Care Time: 35 Critical Care Statement: The care of this patient involved high complexity decision making to prevent further life threatening deterioration of the patient 's condition and/or to evaluate & treat vital organ system(s) failure or risk of failure. - Medical Decision Making 06/26/19 17:30 68 years old with known history of A. fib presents with A. fib with RVR notes elevations or T wave inversions on chest x-ray began feeling palpitations last night was found to be in rapid A. fib this morning while scheduled for a right knee replacement Sent down to the ED for evaluation Patient placed on supervisor webbing vital signs obtained EKG performed at bedside Previous chart reviewed patient has had good response to diltiazem in the past IV diltiazem given under direct MD supervision Good response to IV diltiazem still appears to be in A. fib with RVR Reevaluation p.o. Cardizem given to continue rate control while monitoring Reevaluation patient's heart rate now 80 repeat EKG demonstrated no normal sinus rhythm interpreted by me Chest x-ray demonstrates no acute pathology Status post IV medications patient has cardioverted to sinus rhythm Case discussed with patient's sale professional digital marketing Dr. Molina, recommends increasing metoprolol to 50 daily we will follow-up this week Findings, need for follow-up and strict return instructions discussed with patient. Discharge - Discharge Information Problems reviewed: Yes Clinical Impression/Diagnosis: Afib Qualifiers: Atrial fibrillation type: permanent Qualified Code(s): I48.21 - Permanent atrial fibrillation Condition: Fair Disposition: HOME - Admission No - Additional Discharge Information Prescriptions: Metoprolol Succinate [Toprol Xl] 50 mg PO DAILY #14 tab.er.24h - Follow up/Referral Referrals: Alexx Molina MD [Staff Physician] - - Patient Discharge Instructions Patient Printed Discharge Instructions: DI for Arrhythmias Additional Instructions: Increase your metoprolol to 50 mg daily. Restart your Eliquist today. Call Dr. Molina today for follow-up appointment within 1 week. Return to ED for any chest pain shortness of breath severe worsening symptoms or for any concerns. - Post Discharge Activity
[2019-06-26 12:12] VITALS: BP 108/62; PULSE 80
--- NOTE | 2019-06-27 11:40 | EKG ---
Test Reason : Blood Pressure : / mmHG Vent. Rate : 133 BPM Atrial Rate : 266 BPM P-R Int : 000 ms QRS Dur : 076 ms QT Int : 330 ms P-R-T Axes : 000 035 046 degrees QTc Int : 491 ms ATRIAL FLUTTER WITH 2:1 A-V CONDUCTION ABNORMAL ECG WHEN COMPARED WITH ECG OF 26-JUN-2019 08:58, ATRIAL FLUTTER HAS REPLACED SINUS RHYTHM Confirmed by Yves Barajas MD ([id number]) on 06/27/2019 11:40:33 AM Referred By: WOODROW DUMONT Confirmed By:Yves Barajas MD
--- NOTE | 2019-06-27 11:40 | EKG ---
Test Reason : Blood Pressure : / mmHG Vent. Rate : 081 BPM Atrial Rate : 081 BPM P-R Int : 164 ms QRS Dur : 094 ms QT Int : 410 ms P-R-T Axes : 025 002 008 degrees QTc Int : 476 ms NORMAL SINUS RHYTHM NORMAL ECG WHEN COMPARED WITH ECG OF 26-JUN-2019 10:11, SINUS RHYTHM HAS REPLACED ATRIAL FLUTTER VENT. RATE HAS DECREASED BY [address] NO LONGER ELEVATED IN INFERIOR LEADS Confirmed by Yves Barajas MD ([id number]) on 06/27/2019 11:40:03 AM Referred By: WOODROW DUMONT Confirmed By:Yves Barajas MD
== END 2019-06-26 12:12 | disposition home or self-care (01) ==
LOC: FER 10:07
PROC: 3E033GC Introduction of Other Therapeutic Substance into Peripheral Vein, Percutaneous Approach (ICD-10-PCS; principal; 2019-06-26)
DX: I48.21 Permanent atrial fibrillation (principal); Z88.6 Allergy status to analgesic agent; Z88.8 Allergy status to other drugs, medicaments and biological substances; I10 Essential (primary) hypertension; E78.5 Hyperlipidemia, unspecified; I20.1 Angina pectoris with documented spasm
CPT/HCPCS: 36415; 71045-TC-FY; 80053; 84484; 85025; 93005; 96374; 99284-25

== ENCOUNTER 2019-07-10 07:08 | Inpatient (IN) | payer OTHER, BC ==
[2019-07-05 12:40] VITALS: BMI 27.4
[~2019-07-10 07:08] MED LIST: VANCOMYCIN 1,000 MG VIAL (RESTRICTED TO ID ONLY) IVPB ONE
[2019-07-10] MEDS ORDERED: MIDAZOLAM HCL 2 MG/2 ML SINGLE DOSE VIAL ONE ×2 (07:56→08:48)
[2019-07-10] MEDS ORDERED: BUPIVACAINE LIPOSOME/PF (EXPAREL) 266 MG/20 ML VIAL ONE (07:56)
[2019-07-10] MEDS ORDERED: SODIUM CHLORIDE 0.9% P/F 10 ML VIAL IJ ONE (07:56)
--- NOTE | 2019-07-10 07:56 | HP ---
Satellite [facility] [place] - Chief Complaint Chief Complaint: right knee pain - Past Medical History Allergies/Adverse Reactions: Allergies Allergy/AdvReac Type Severity Reaction Status Date / Time oxycodone [Oxycodone] Allergy Intermediate Vomiting Verified 06/26/19 10:12 iodine Allergy Mild ACNE Verified 06/26/19 10:12 Cardiovascular: Yes: HTN, Hyperlipdemia, Other (Prinzmetal's angina) - Current Medications Current Medications: Home Medications Medication Instructions Recorded Apixaban [Eliquis -] 5 mg PO BID #60 tablet 06/27/18 Omeprazole 40 mg PO BID 06/27/18 Sertraline HCl 100 mg PO BID 06/27/18 Amlodipine Besylate 5 mg PO DAILY 06/18/19 Calcium Carbonate [Calcium] 3 tab PO DAILY 06/18/19 Multivitamin [Multiple Vitamins] 2 tab PO DAILY 06/18/19 Atorvastatin Ca [Lipitor] 10 mg PO DAILY 06/26/19 Cyanocobalamin [Vitamin B12 -] 3,000 mcg PO WEEKLY 06/26/19 Metoprolol Succinate [Toprol Xl] 50 mg PO DAILY #14 tab.er.24h 06/26/19 Satellite Physical Exam - Physical Examination General Appearance: Well Nourished, Well Developed, Alert & Oriented x3 ENT: Clear Lung: Normal air movement Extremities: Other (right knee- +s welling, + ttp ,decr rom, nvi, xrays show grade 4 tricompartmental djd) Neurological: Intact, Alert, Oriented Satellite Impression/Plan - Impression/Plan Impression: right knee djd Operative Procedure: right flynn tkr Date to be Performed: 07/10/19
[2019-07-10] MEDS ORDERED: ceFAZolin SODIUM 1 GM VIAL ONE ×3 (07:59→09:46)
[2019-07-10] MEDS ORDERED: VANCOMYCIN 1,000 MG VIAL (RESTRICTED TO ID ONLY) ONE (07:59)
[2019-07-10] MEDS ORDERED: CELECOXIB 200 MG CAPSULE PO ONE (08:14)
[2019-07-10] MEDS ORDERED: PROPOFOL 20 ML ONE ×5 (09:00→10:37)
[2019-07-10] MEDS ORDERED: TRANEXAMIC ACID 1000 MG/10 ML VIAL ONE (09:00)
[2019-07-10] MEDS ORDERED: CEFAZOLIN 2 GM in DEXTROSE 5%-WATER - 50 ML IVPB ONE (09:30)
[2019-07-10] MEDS ORDERED: TRANEXAMIC ACID 1000 MG/10 ML VIAL IVPUSH ONE (09:30)
[2019-07-10] MEDS ORDERED: PHENYLEPHRINE HCL 10 MG/1 ML SINGLE DOSE VIAL ONE (09:33)
[2019-07-10] MEDS ORDERED: ePHEDrine SULFATE 50 MG/1 ML AMPULE ONE (09:33)
[2019-07-10] MEDS ORDERED: ONDANSETRON 4 MG/2 ML VIAL ONE ×2 (09:46→12:42)
[2019-07-10] MEDS ORDERED: DEXAMETHASONE SOD PHOSPHATE 4 MG/1 ML VIAL ONE (09:46)
[2019-07-10] MEDS ORDERED: VANCOMYCIN 1,000 MG VIAL (RESTRICTED TO ID ONLY) IVPB ONE (10:43)
[2019-07-10] MEDS ORDERED: MAGNESIUM HYDROX 2400MG/30ML ORAL SUSPENSION 30 ML CUP PO PRN (11:09)
[2019-07-10] MEDS ORDERED: ONDANSETRON 4 MG/2 ML VIAL IVPUSH PRN ×2 (11:09→11:23)
[2019-07-10] MEDS ORDERED: MAG HYDROX/AL HYDROX/SIMETH 30 ML UNIT-DOSE CUP PO PRN (11:09)
--- NOTE | 2019-07-10 11:11 | OP ---
Operative Note - Note: Operative Date: 07/10/19 (monica) Pre-Operative Diagnosis: right knee djd Operation: right flynn tkr Post-Operative Diagnosis: Same as Pre-op Surgeon: Joselo Aguero Flight Manager: Dion Maza Anesthesiologist/HEALTH COMMUNICATIONS SPECIALIST: Jud Ellis Anesthesia: Spinal, Local Specimens Removed: bone fragments Estimated Blood Loss (mls): 150
[2019-07-10] MEDS ORDERED: LACTATED RINGERS SOLUTION 1,000 ML IV SCH (11:15)
[2019-07-10] MEDS ORDERED: oxyCODONE HCL 5 MG TABLET PO PRN (11:23)
[2019-07-10] MEDS ORDERED: traMADol HCL 50 MG TABLET PO PRN (11:23)
[2019-07-10] MEDS ORDERED: ACETAMINOPHEN 325 MG TABLET (FP) PO SCH (11:30)
[2019-07-10] MEDS ORDERED: ACETAMINOPHEN 325 MG TABLET (FP) ONE (12:32)
[2019-07-10] MEDS: oxyCODONE HCL 5 MG TABLET PO PRN ×3 (14:00→21:07)
--- NOTE | 2019-07-10 15:05 | SPEC ---
DATE OF OPERATION: 07/10/2019 PREOPERATIVE DIAGNOSIS: Degenerative joint disease, right knee. POSTOPERATIVE DIAGNOSIS: Degenerative joint disease, right knee. PROCEDURE: Right total knee replacement with robotic-assisted navigation (MAKOplasty). SURGICAL ATTENDING: Joselo Aguero MD RUBY ENGINEER: AME Rincon ANESTHESIA: Regional and spinal. CLOSURE: A Press-Fit Triathlon knee system with a 5 femur, 5 tibia, 11 polyethylene, a 32 patella; No. 1 Vicryl, fascia; 0 and 2-0 subcutaneous; 3-0 Monocryl subcuticular with skin glue; 4-0 undyed Vicryl for pin sites. ESTIMATED BLOOD LOSS: Less than 100 mL. COMPLICATIONS: None. CONDITION: To recovery room in stable condition. DESCRIPTION OF OPERATIVE PROCEDURE: Patient was taken to the operating room on July 10, 2019. Regional and spinal anesthesia was administered by the anesthesiologist. IV Kefzol was administered prophylactically prior to the case as well as TXA. The right lower extremity was prepped and draped in the usual sterile fashion. The midline 10- to 12-cm longitudinal incision was made. Hemostasis was achieved with Bovie cautery. Sharp dissection was carried down to the extensor mechanism which was perform the procedure. Medial parapatellar arthrotomy was then performed, leaving a cuff of tissue for later closure. The patella was inverted and the knee was flexed up. The fat pad was excised. Subperiosteal dissection was done on the anteromedial proximal tibia until the knee was able to be brought forward. This was facilitated by taking the ACL, PCL and medial and lateral menisci. Checkpoints were placed in both the femur and in the tibia. Two parallel threaded pins were drilled superior to the knee joint through the already made incision from anterior to posterior just going through the anterior cortex but just engaging but not going through the posterior cortex. Two threaded pins were drilled through 2 small stab incisions in parallel fashion 1 handbreadth below the tibial tubercle through the anterior cortex of the tibia and engaging but not going through the posterior cortex. Both sets of pins were attached to navigation arrays for the DINORAH system. The knee was then registered with the navigation system with center of rotation of the hip, medial and lateral malleoli and multiple sites both on the tibia and on the femur. Confirmation of excellent registration was confirmed by "popping the bubbles." At this time, the knee was thoroughly inspected to remove all osteophytes around the knee. The knee was then tensioned in varus/valgus at both full extension and at 90 degrees of flexion to ascertain our gaps. The virtual position of the components was optimized to ensure equal gaps throughout the range of motion. Once this was performed, the robot was brought into the field, was registered. The bone was cut as per the specifications on both the tibia and on the femur. The box cuts were then made as well. Excellent trial stability was obtained on the femur. The tibial baseplate was allowed to "find itself" and then was clipped into place. Confirmation of excellent external rotation of that component was confirmed by the navigation device as well.The patella was calibered for thickness and cut at the appropriate level. The appropriate lollipop was used to drill 3 holes in the patella and a trial asymmetric patellar button was applied. The knee was taken through a range of motion and found to have excellent stability from full extension to full flexion with excellent tracking of the patella. The trial components were then removed. The lug holes were drilled in the femur. The cementless keel was punched in the tibia. The real Press-Fit components were malleted into place, first with the tibia and then with the femur, and then the patella was crimped into place as well. The real polyethylene liner was then clipped into place. Range of motion, stability and tracking were as described earlier. The knee was thoroughly irrigated with copious amounts of irrigation. Vancomycin powder was placed inside the joint. The medial parapatellar arthrotomy was then closed using No. 1 Vicryl interrupted suture. Post closure of the arthrotomy, the knee was taken through a range of motion and found to have no undue tension on the repair. The subcutaneous was then pulse antibiotic irrigated, closed with 0 and 2-0 Vicryl and 3-0 Monocryl subcuticular with skin glue for the skin. Prior to closure, the checkpoints were removed as were the threaded pins. The tibial pin sites were closed with 4-0 undyed Vicryl. A sterile pressure Aquacel dressing was applied. No tourniquet was used during the case. The total blood loss was approximately 100 mL. No complication. Patient was transferred to recovery in stable condition. Luis [id number]
[2019-07-10] MEDS: CEFAZOLIN 2 GM/D5W 2 GM/50 ML ML IVPB SCH (17:44)
--- NOTE | 2019-07-10 18:44 | CONSULT ---
Consult - Past Medical History Cardio/Vascular: Yes: AFIB, HTN, Hyperlipdemia, Other (Prinzmetal's angina) ...: No - Alcohol/Substance Use Hx Alcohol Use: Yes (SOCIALLY) - Smoking History Smoking history: Never smoked Have you smoked in the past 12 months: No - Social History Usual Living Arrangement: Alone History of Recent Travel: No Home Medications - Allergies Allergies/Adverse Reactions: Allergies Allergy/AdvReac Type Severity Reaction Status Date / Time oxycodone [Oxycodone] Allergy Intermediate Vomiting Verified 07/10/19 08:16 iodine Allergy Mild ACNE Verified 07/10/19 08:16 - Home Medications Home Medications: Ambulatory Orders Apixaban [Eliquis -] 5 mg PO BID #60 tablet 06/27/18 Omeprazole 40 mg PO BID 06/27/18 Sertraline HCl 100 mg PO BID 06/27/18 Amlodipine Besylate 5 mg PO DAILY 06/18/19 Calcium Carbonate [Calcium] 3 tab PO DAILY 06/18/19 Multivitamin [Multiple Vitamins] 2 tab PO DAILY 06/18/19 Atorvastatin Ca [Lipitor] 10 mg PO DAILY 06/26/19 Cyanocobalamin [Vitamin B12 -] 3,000 mcg PO WEEKLY 06/26/19 Metoprolol Succinate [Toprol Xl] 50 mg PO DAILY #14 tab.er.24h 06/26/19 Review of Systems - Review of Systems Cardiovascular: reports: No Symptoms Respiratory: reports: No Symptoms Gastrointestinal: reports: No Symptoms Musculoskeletal: reports: Joint Pain Physical Exam Vital Signs: Vital Signs Temperature 97.9 F 07/10/19 13:35 Pulse Rate 65 07/10/19 13:35 Respiratory Rate 12 07/10/19 13:35 Blood Pressure 108/62 07/10/19 13:35 O2 Sat by Pulse Oximetry (%) 100 07/10/19 13:50 Cardiovascular: Yes: Regular Rate and Rhythm Respiratory: Yes: Regular, CTA Bilaterally Gastrointestinal: Yes: Normal Bowel Sounds, Soft Problem List - Problems (1) Knee joint replacement status Assessment/Plan: Operative Date: 07/10/19 (monica) Pre-Operative Diagnosis: right knee djd Operation: right flynn tkr Post-Operative Diagnosis: Same as Pre-op Surgeon: Joselo Aguero Senior Applications Developer: Dion Maza ortho Code(s): Z96.659 - PRESENCE OF UNSPECIFIED ARTIFICIAL KNEE JOINT (2) Afib Assessment/Plan: sinus now continue with eliquis metoprolol Code(s): I48.91 - UNSPECIFIED ATRIAL FIBRILLATION (3) Hypertensive heart disease Assessment/Plan: controlled Code(s): I11.9 - HYPERTENSIVE HEART DISEASE WITHOUT HEART FAILURE Qualifiers:
[2019-07-10] MEDS: SENNOSIDES/DOCUSATE COMBO (SENNA PLUS) TABLET (UD) PO SCH (21:07)
[2019-07-10] MEDS: PANTOPRAZOLE 40 MG TABLET PO SCH (21:07)
[2019-07-10] MEDS: SERTRALINE HCL 50 MG TABLET (FP) PO SCH (21:08)
[2019-07-10] MEDS: ACETAMINOPHEN 325 MG TABLET (FP) PO SCH (21:08)
[2019-07-10] MEDS: oxyCODONE HCL 10 MG SUSTAINED ACTING TABLET PO SCH (21:08)
[2019-07-11] MEDS: ACETAMINOPHEN 325 MG TABLET (FP) PO SCH ×4 (02:26→20:22)
[2019-07-11] MEDS: CEFAZOLIN 2 GM/D5W 2 GM/50 ML ML IVPB SCH (02:26)
[2019-07-11] MEDS: oxyCODONE HCL 5 MG TABLET PO PRN ×4 (03:51→16:19)
--- NOTE | 2019-07-11 07:06 | PN ---
Progress Note, Physician - Current Medication List Current Medications: Active Medications Acetaminophen (Tylenol -) 650 mg PO Q6H [facility] Stop: 07/13/19 19:59 Last Admin: 07/11/19 02:26 Dose: 650 mg Al Hydroxide/Mg Hydroxide (Mylanta Oral Suspension -) 30 ml PO Q4H PRN PRN Reason: DYSPEPSIA Amlodipine Besylate (Norvasc -) 5 mg PO DAILY [facility] Apixaban (Eliquis -) 5 mg PO BID [facility] Atorvastatin Calcium (Lipitor -) 10 mg PO DAILY [facility] Fentanyl (Sublimaze Injection -) 25 mcg IVPUSH [id number] PRN PRN Reason: PAIN-PACU ORDER X 4 DOSES ONLY Fentanyl (Sublimaze Injection -) 50 mcg IVPUSH [id number] PRN PRN Reason: PAIN-PACU ORDER X 4 DOSES ONLY Last Admin: 07/10/19 13:05 Dose: 50 mcg Lactated Ringer's (Lactated Ringers Solution) 1,000 mls @ 75 mls/hr IV ASDIR [facility] Magnesium Hydroxide (Milk Of Magnesia -) 30 ml PO PRN PRN PRN Reason: CONSTIPATION Metoprolol Succinate (Toprol Xl -) 50 mg PO DAILY [facility] Multivitamins/Minerals/Vitamin C (Tab-A-Vit -) 1 tab PO DAILY [facility] Ondansetron HCl (Zofran Injection) 4 mg IVPUSH Q6H PRN PRN Reason: NAUSEA Last Admin: 07/10/19 12:45 Dose: 4 mg Oxycodone HCl (Roxicodone -) 5 mg PO Q3H PRN PRN Reason: PAIN LEVEL 1-5 Oxycodone HCl (Roxicodone -) 10 mg PO Q3H PRN PRN Reason: PAIN LEVEL 6-10 Last Admin: 07/11/19 03:51 Dose: 10 mg Oxycodone HCl (Oxycontin -) 10 mg PO BID [facility] Stop: 07/13/19 11:23 Last Admin: 07/10/19 21:08 Dose: 10 mg Pantoprazole Sodium (Protonix -) 40 mg PO BID [facility] Last Admin: 07/10/19 21:07 Dose: 40 mg Senna/Docusate Sodium (Pericolace -) 2 tablet PO BID [facility] Last Admin: 07/10/19 21:07 Dose: 2 tablet Sertraline HCl (Zoloft -) 100 mg PO BID [facility] Last Admin: 07/10/19 21:08 Dose: 100 mg Tramadol HCl (Ultram -) 50 mg PO Q3H PRN PRN Reason: PAIN LEVEL 1 - 3 - Objective Vital Signs: Vital Signs Temperature 98.5 F 07/11/19 06:00 Pulse Rate 80 07/11/19 06:00 Respiratory Rate 07/11/19 06:00 Blood Pressure 109/60 07/11/19 06:00 O2 Sat by Pulse Oximetry (%) 97 07/11/19 06:47 Cardiovascular: Yes: Regular Rate and Rhythm Respiratory: Yes: Regular, CTA Bilaterally Gastrointestinal: Yes: Normal Bowel Sounds, Soft Problem List - Problems (1) Knee joint replacement status Assessment/Plan: Operative Date: 07/10/19 (monica) Pre-Operative Diagnosis: right knee djd Operation: right flynn tkr Post-Operative Diagnosis: Same as Pre-op Surgeon: Joselo Aguero Funeral Counselor: Dion Maza ortho Code(s): Z96.659 - PRESENCE OF UNSPECIFIED ARTIFICIAL KNEE JOINT (2) Afib Assessment/Plan: sinus now continue with eliquis metoprolol Code(s): I48.91 - UNSPECIFIED ATRIAL FIBRILLATION (3) Hypertensive heart disease Assessment/Plan: controlled Code(s): I11.9 - HYPERTENSIVE HEART DISEASE WITHOUT HEART FAILURE Qualifiers:
[2019-07-11 07:39] LABS: HEMOGLOBIN 11.5 GM/dl (10.7-15.3); MCH 32.8 pg (25.7-33.7); MCHC 32.7 g/dl (32.0-36.0); MEAN CELL VOLUME 100.3 fl (80-96); MEAN PLT VOLUME 7.7 fl (7.5-11.1); PLATELET COUNT 173 K/MM3 (134-434); RBC 3.49 M/mm3 (3.60-5.2); RDW 12.7 % (11.6-15.6); WHITE BLOOD COUNT 6.6 K/mm3 (4.0-10.8)
--- NOTE | 2019-07-11 09:29 | PN ---
Progress Note (short form) - Note Progress Note: Ortho Pt seen and examined s/p right flynn tkr pod #1 Selected Entries 07/11/19 06:00 Temperature 98.5 F Pulse Rate 80 Respiratory 19 Rate Blood Pressure 109/60 Laboratory Tests 07/11/19 07:00 WBC 6.6 Hgb 11.5 Hct 35.0 D Plt Count 173 dressing c/d/i, calf soft, nt rom 0-40, nvi a/p PT dvt ppx pain control d/c home tomorrow if stable
[2019-07-11] MEDS: oxyCODONE HCL 10 MG SUSTAINED ACTING TABLET PO SCH ×2 (10:01→21:12)
[2019-07-11] MEDS: ATORVASTATIN CA 10 MG TABLET (FP) PO SCH (10:01)
[2019-07-11] MEDS: APIXABAN 5 MG TABLET PO SCH ×2 (10:01→21:14)
[2019-07-11] MEDS: MULTIVITAMINS (DAILY MVI) TABLET (FP) PO SCH (10:01)
[2019-07-11] MEDS: SERTRALINE HCL 50 MG TABLET (FP) PO SCH ×2 (10:01→21:15)
[2019-07-11] MEDS: SENNOSIDES/DOCUSATE COMBO (SENNA PLUS) TABLET (UD) PO SCH ×2 (10:01→21:13)
[2019-07-11] MEDS: amLODIPine BESYLATE 5 MG TABLET (FP) PO SCH (10:01)
[2019-07-11] MEDS: PANTOPRAZOLE 40 MG TABLET PO SCH ×2 (10:01→21:14)
[2019-07-11] MEDS: LACTATED RINGERS SOLUTION 1,000 ML IV SCH (12:03)
--- NOTE | 2019-07-11 13:26 | PN ---
Progress Note (short form) - Note Progress Note: POD #1 s/p R TKR makoplasty under spinal anesthesia/adductor canal + selective tibial nerve blocks. Patient doing well, denies nausea. Pain well controlled with current pain medication regimen. Tolerating physical therapy. All questions answered.
[2019-07-12] MEDS: ACETAMINOPHEN 325 MG TABLET (FP) PO SCH ×2 (01:55→07:47)
[2019-07-12] MEDS: oxyCODONE HCL 5 MG TABLET PO PRN (06:18)
--- NOTE | 2019-07-12 06:57 | PN ---
Progress Note (short form) - Note Progress Note: Ortho Pt seen and examined s/p right flynn tkr pod #2 Laboratory Tests 07/11/19 07:00 WBC 6.6 Hgb 11.5 Hct 35.0 D Plt Count 173 dressing c/d/i, calf soft, nt rom 0-40, nvi cbc pending a/p PT dvt ppx pain control d/c home today f/u in 1 week
--- NOTE | 2019-07-12 06:58 | DS ---
Physical Examination Vital Signs: Vital Signs Temperature 98.1 F 07/12/19 06:00 Pulse Rate 109 H 07/12/19 06:00 Respiratory Rate 18 07/12/19 06:00 Blood Pressure 115/77 07/12/19 06:00 O2 Sat by Pulse Oximetry (%) 95 07/12/19 06:00 Labs: CBC, BMP 07/11/19 07:00 Discharge Summary Problems reviewed: Yes Reason For Visit: OSTEOARTHRITIS Current Active Problems Knee joint replacement status (Acute) Procedures: Principal: right tkr Hospital Course: admitted for elective right flynn tkr, post-op per protocol, stable for d/c Condition: Good - Instructions Diet, Activity, Other Instructions: Post-op Instructions-Total Knee Replacement Call the office for a follow-up appointment in 1 week - [phone] Aspirin 325mg daily for 6 weeks. Pain medication was sent into your pharmacy. Apply Graduated Compression Stockings (TEDs) to both lower extremities- remove daily for hygiene ONLY Apply Sequential Compression Device (SCDs) to both Lower extremities remove for PT and hygiene ONLY Apply cold packs to affected area for 15 minutes every 2 hours. Physical Therapist will come to your home for the first 5 days. You will be set up with outpatient PT at your first post-operative visit. Patient may ambulate as tolerated-encourage self care (at least every 2-3 hours while awake) with walker or cane Maintain Aquacel (waterproof) dressing to operative wound (will be removed by surgeon at first office visit) Shower with Aquacel dressing in place-if Aquacel integrity compromised, remove and apply dry sterile dressing and notify Orthopedist. DO NOT SHOWER unless Orthopedists approves without Aquacel dressing CONTACT THE OFFICE FOR ANY CHANGE IN YOUR CONDITION (for example-fever greater than 102 degrees, excessive bleeding from operative site, purulent drainage, severe swelling or pain) GO TO THE EMERGENCY ROOM IF THERE IS A MEDICAL EMERGENCY Knee Precautions: * Keep a rolled towel under affected heel while in bed or chair (to keep knee in extension) * Keep affected leg elevated except during mealtimes * DO NOT PLACE PILLOW UNDER AFFECTED KNEE * If you have any questions, please do not hesitate to call the office - . Referrals: Joselo Aguero MD [Staff Physician] - Disposition: VNS/HOME HEALTH CARE - Home Medications Comprehensive Discharge Medication List: Ambulatory Orders Apixaban [Eliquis -] 5 mg PO BID #60 tablet 06/27/18 Omeprazole 40 mg PO BID 06/27/18 Sertraline HCl 100 mg PO BID 06/27/18 Amlodipine Besylate 5 mg PO DAILY 06/18/19 Calcium Carbonate [Calcium] 3 tab PO DAILY 06/18/19 Multivitamin [Multiple Vitamins] 2 tab PO DAILY 06/18/19 Atorvastatin Ca [Lipitor] 10 mg PO DAILY 06/26/19 Cyanocobalamin [Vitamin B12 -] 3,000 mcg PO WEEKLY 06/26/19 Metoprolol Succinate [Toprol Xl] 50 mg PO DAILY #14 tab.er.24h 06/26/19 Oxycodone HCl/Acetaminophen [Percocet 5-325 mg Tablet -] 1 - 2 tab PO Q6H #50 tab MDD 8 07/11/19
--- NOTE | 2019-07-12 07:20 | PN ---
Progress Note, Physician - Current Medication List Current Medications: Active Medications Acetaminophen (Tylenol -) 650 mg PO Q6H [facility] Stop: 07/13/19 19:59 Last Admin: 07/12/19 01:55 Dose: Not Given Al Hydroxide/Mg Hydroxide (Mylanta Oral Suspension -) 30 ml PO Q4H PRN PRN Reason: DYSPEPSIA Amlodipine Besylate (Norvasc -) 5 mg PO DAILY [facility] Last Admin: 07/11/19 10:01 Dose: Not Given Apixaban (Eliquis -) 5 mg PO BID [facility] Last Admin: 07/11/19 21:14 Dose: 5 mg Atorvastatin Calcium (Lipitor -) 10 mg PO DAILY [facility] Last Admin: 07/11/19 10:01 Dose: 10 mg Fentanyl (Sublimaze Injection -) 25 mcg IVPUSH [id number] PRN PRN Reason: PAIN-PACU ORDER X 4 DOSES ONLY Fentanyl (Sublimaze Injection -) 50 mcg IVPUSH [id number] PRN PRN Reason: PAIN-PACU ORDER X 4 DOSES ONLY Last Admin: 07/10/19 13:05 Dose: 50 mcg Lactated Ringer's (Lactated Ringers Solution) 1,000 mls @ 75 mls/hr IV ASDIR [facility] Last Admin: 07/11/19 12:03 Dose: Not Given Magnesium Hydroxide (Milk Of Magnesia -) 30 ml PO PRN PRN PRN Reason: CONSTIPATION Metoprolol Succinate (Toprol Xl -) 50 mg PO DAILY [facility] Last Admin: 07/11/19 10:02 Dose: Not Given Multivitamins/Minerals/Vitamin C (Tab-A-Vit -) 1 tab PO DAILY [facility] Last Admin: 07/11/19 10:01 Dose: 1 tab Ondansetron HCl (Zofran Injection) 4 mg IVPUSH Q6H PRN PRN Reason: NAUSEA Last Admin: 07/10/19 12:45 Dose: 4 mg Oxycodone HCl (Roxicodone -) 5 mg PO Q3H PRN PRN Reason: PAIN LEVEL 1-5 Oxycodone HCl (Roxicodone -) 10 mg PO Q3H PRN PRN Reason: PAIN LEVEL 6-10 Last Admin: 07/12/19 06:18 Dose: 10 mg Oxycodone HCl (Oxycontin -) 10 mg PO BID [facility] Stop: 07/13/19 11:23 Last Admin: 07/11/19 21:12 Dose: 10 mg Pantoprazole Sodium (Protonix -) 40 mg PO BID [facility] Last Admin: 07/11/19 21:14 Dose: 40 mg Senna/Docusate Sodium (Pericolace -) 2 tablet PO BID [facility] Last Admin: 07/11/19 21:13 Dose: 2 tablet Sertraline HCl (Zoloft -) 100 mg PO BID [facility] Last Admin: 07/11/19 21:15 Dose: 100 mg Tramadol HCl (Ultram -) 50 mg PO Q3H PRN PRN Reason: PAIN LEVEL 1 - 3 - Objective Vital Signs: Vital Signs Temperature 98.1 F 07/12/19 06:00 Pulse Rate 109 H 07/12/19 06:00 Respiratory Rate 18 07/12/19 06:00 Blood Pressure 115/77 07/12/19 06:00 O2 Sat by Pulse Oximetry (%) 95 07/12/19 06:00 Cardiovascular: Yes: Regular Rate and Rhythm Respiratory: Yes: Regular, CTA Bilaterally Gastrointestinal: Yes: Normal Bowel Sounds, Soft. No: Tenderness Labs: CBC, BMP 07/11/19 07:00 Problem List - Problems (1) Knee joint replacement status Assessment/Plan: Operative Date: 07/10/19 (monica) Pre-Operative Diagnosis: right knee djd Operation: right flynn tkr Post-Operative Diagnosis: Same as Pre-op Surgeon: Joselo Aguero International Sales Manager: Dion Maza ortho Code(s): Z96.659 - PRESENCE OF UNSPECIFIED ARTIFICIAL KNEE JOINT (2) Afib Assessment/Plan: sinus now continue with eliquis metoprolol Code(s): I48.91 - UNSPECIFIED ATRIAL FIBRILLATION (3) Hypertensive heart disease Assessment/Plan: controlled Code(s): I11.9 - HYPERTENSIVE HEART DISEASE WITHOUT HEART FAILURE Qualifiers:
[2019-07-12 08:09] LABS: HEMATOCRIT 32.5 % (32.4-45.2); HEMOGLOBIN 11.1 GM/dl (10.7-15.3); MCH 34.1 pg (25.7-33.7); MCHC 34.2 g/dl (32.0-36.0); MEAN CELL VOLUME 99.7 fl (80-96); PLATELET COUNT 172 K/MM3 (134-434); RBC 3.26 M/mm3 (3.60-5.2); RDW 12.4 % (11.6-15.6); WHITE BLOOD COUNT 7.3 K/mm3 (4.0-10.8)
[2019-07-12 09:37] VITALS: BP 103/57; PULSE 91; TEMP 99
[2019-07-12] MEDS: oxyCODONE HCL 10 MG SUSTAINED ACTING TABLET PO SCH (09:42)
[2019-07-12] MEDS: SERTRALINE HCL 50 MG TABLET (FP) PO SCH (09:43)
[2019-07-12] MEDS: ATORVASTATIN CA 10 MG TABLET (FP) PO SCH (09:44)
[2019-07-12] MEDS: PANTOPRAZOLE 40 MG TABLET PO SCH (09:44)
[2019-07-12] MEDS: MULTIVITAMINS (DAILY MVI) TABLET (FP) PO SCH (09:44)
[2019-07-12] MEDS: SENNOSIDES/DOCUSATE COMBO (SENNA PLUS) TABLET (UD) PO SCH (09:45)
[2019-07-12] MEDS: APIXABAN 5 MG TABLET PO SCH (09:45)
[2019-07-12] MEDS: amLODIPine BESYLATE 5 MG TABLET (FP) PO SCH (09:45)
[2019-07-12] MEDS: LACTATED RINGERS SOLUTION 1,000 ML IV SCH (11:49)
--- NOTE | 2019-07-13 15:53 | PATH ---
Surgical Pathology Report Patient Name: ANA SANDERS Med. Rec. #: [id number] /Age/Gender: 1950 (Age: 68) / F Account: [id number] Location: [facility] MED-SUR[facility] Taken: 07/10/2019 Received: 07/10/2019 Reported: 07/13/2019 Physicians: Joselo Aguero M.D. Specimen(s) Received RIGHT KNEE BONES Clinical History Right knee osteoarthritis Final Diagnosis KNEE BONES, RIGHT, TOTAL KNEE REPLACEMENT: DEGENERATIVE JOINT DISEASE. Electronically Signed Pretty Yun M.D. Gross Description Received in formalin labeled "right knee bones," is an 11.0 x 8.0 x 2.3 cm aggregate of multiple portions of bone and soft tissue, consistent with knee bones. No discrete areas of eburnation are identified. The articular surfaces are delgado-brown and diffusely granular. The underlying trabecular bone is yellow and hard. Corporate General Manager sections are submitted in one cassette, following decalcification. /07/11/[address] [facility]07/11/2019
== END 2019-07-12 12:02 | disposition home health service (06) | DRG 470 ==
LOC: FM/S 07:08
PROVIDERS: ADMIT Orthopaedic Surgery; ATTEND Orthopaedic Surgery
PROC: 8E0Y0CZ Robotic Assisted Procedure of Lower Extremity, Open Approach (ICD-10-PCS; 2019-07-10)
PROC: 0SRC0JA Replacement of Right Knee Joint with Synthetic Substitute, Uncemented, Open Approach (ICD-10-PCS; principal; 2019-07-10 09:55)
DX: M17.11 Unilateral primary osteoarthritis, right knee (principal); E78.5 Hyperlipidemia, unspecified; I48.91 Unspecified atrial fibrillation; I11.9 Hypertensive heart disease without heart failure
CPT/HCPCS: 36415; 73560-TC-RT-FY; 85027; 88304-TC; 88311-TC; 94760; 97116-GP; 97163-GP

== ENCOUNTER 2023-01-12 04:38 | Day surgery (SDC) | payer OTHER, BC ==
[2023-01-12 06:35] VITALS: BMI 26.1
[2023-01-12] MEDS ORDERED: ROPIVACAINE HCL 0.5% 30ML VIAL ONE (07:45)
[2023-01-12] MEDS ORDERED: MIDAZOLAM HCL 2 MG/2 ML SINGLE DOSE VIAL ONE (07:47)
[2023-01-12] MEDS ORDERED: PROPOFOL 20 ML ONE (07:47)
[2023-01-12] MEDS ORDERED: LIDOCAINE HCL/PF 2% SDV 5ML VIAL ONE (07:48)
[2023-01-12] MEDS ORDERED: SODIUM CHLORIDE 0.9% P/F 10 ML VIAL IJ ONE (07:48)
[2023-01-12] MEDS ORDERED: ceFAZolin SODIUM 1 GM VIAL ONE (07:48)
[2023-01-12] MEDS ORDERED: ceFAZolin SODIUM 1 GM VIAL IVPB ONE (08:24)
[2023-01-12] MEDS ORDERED: ONDANSETRON 4 MG/2 ML VIAL ONE (08:35)
[2023-01-12] MEDS ORDERED: DEXAMETHASONE SOD PHOSPHATE 4 MG/1 ML VIAL ONE (08:35)
[2023-01-12] MEDS ORDERED: ONDANSETRON 4 MG/2 ML VIAL IVPUSH PRN (09:52)
[2023-01-12] MEDS ORDERED: oxyCODONE HCL 5 MG TABLET PO PRN (09:52)
[2023-01-12] MEDS ORDERED: PROMETHAZINE HCL 25 MG/1 ML VIAL IVPB PRN (09:52)
[2023-01-12] MEDS ORDERED: LACTATED RINGERS SOLUTION 1,000 ML IV SCH (10:00)
[2023-01-12 12:26] VITALS: RESP 18
[2023-01-12 13:12] VITALS: BP 103/70; PULSE 61; TEMP 98.6
== END 2023-01-12 14:10 | disposition home or self-care (01) ==
LOC: JASU-SURG 04:38
PROVIDERS: ATTEND Orthopaedic Surgery
PROC: 0PSH04Z Reposition Right Radius with Internal Fixation Device, Open Approach (ICD-10-PCS; principal; 2023-01-12 08:00)
DX: S52.571A Other intraarticular fracture of lower end of right radius, initial encounter for closed fracture (principal); X58.XXXA Exposure to other specified factors, initial encounter; Y93.9 Activity, unspecified; Y92.9 Unspecified place or not applicable; Y99.9 Unspecified external cause status
CPT/HCPCS: 25608; C1713; 93005; 93010; 94760

== ENCOUNTER 2024-06-08 04:31 | Day surgery (SDC) | payer OTHER, BC ==
[2024-06-06 12:15] VITALS: BMI 31.3
[2024-06-08 13:01] VITALS: TEMP 98
[2024-06-08 13:02] VITALS: PULSE 70
[2024-06-08 13:05] VITALS: BP 120/68; RESP 17
== END 2024-06-08 10:25 | disposition home or self-care (01) ==
LOC: JASU-ENDO 04:31
PROVIDERS: ATTEND Student in an Organized Health Care Education/Training Program
PROC: 0DBM8ZX Excision of Descending Colon, Via Natural or Artificial Opening Endoscopic, Diagnostic (ICD-10-PCS; principal; 2024-06-08 09:00)
DX: Z12.11 Encounter for screening for malignant neoplasm of colon (principal); K57.30 Diverticulosis of large intestine without perforation or abscess without bleeding; D12.4 Benign neoplasm of descending colon
CPT/HCPCS: 88305-TC